=== PATIENT | female | born 1970 | race Caucasian/White ===

== ENCOUNTER → 2016-09-02 | Outpatient (CLI) | payer BC ==
[2004-12-16 04:05] VITALS: TEMP 97.6
== END ==
LOC: MC.RAD 08:00
DX: Z12.31 Encounter for screening mammogram for malignant neoplasm of breast (principal)

== ENCOUNTER → 2019-10-21 | Outpatient (CLI) | payer BC ==
[2004-12-16 04:05] VITALS: TEMP 97.6
== END ==
LOC: MC.RAD 18:48
DX: Z12.31 Encounter for screening mammogram for malignant neoplasm of breast (principal)

== ENCOUNTER → 2019-12-28 | Outpatient (CLI) | payer BC ==
[2004-12-16 04:05] VITALS: TEMP 97.6
== END ==
LOC: ZCOL.LAB 16:24
DX: U07.1 COVID-19 (principal)

== ENCOUNTER → 2020-01-04 | Outpatient (CLI) | payer BC ==
[2004-12-16 04:05] VITALS: TEMP 97.6
== END ==
LOC: ZCOL.LAB 16:12
DX: Z20.828 Contact with and (suspected) exposure to other viral communicable diseases (principal)

== ENCOUNTER → 2023-03-10 | Outpatient (CLI) | payer BC ==
[2004-12-16 04:05] VITALS: TEMP 97.6
== END ==
LOC: MC.RAD 08:22 → COL.RAD 08:22
DX: Z12.31 Encounter for screening mammogram for malignant neoplasm of breast (principal)